=== PATIENT | male | born 1985 | race Caucasian/White ===

== ENCOUNTER 2024-03-31 13:55 | Emergency (ER) | payer OTHER ==
[~2024-03-31] VITALS: Ht 177.8 cm; Wt 65.8 kg
[2024-03-31 14:12] VITALS: BP 123/92; PULSE 91; RESP 18; TEMP 96.9; O2SAT 99
[2024-03-31 14:26] VITALS: O2SAT 99
[2024-03-31] MEDS: KETOROLAC 30 MG/ML VIAL IM ONE (14:46)
[2024-03-31] MEDS ORDERED: IBUP-2213 PO (15:39)
== END 2024-03-31 15:45 | disposition home or self-care (01) ==
LOC: MED 13:55
DX: S62.312A Displaced fracture of base of third metacarpal bone, right hand, initial encounter for closed fracture (principal); S62.314A Displaced fracture of base of fourth metacarpal bone, right hand, initial encounter for closed fracture; S62.316A Displaced fracture of base of fifth metacarpal bone, right hand, initial encounter for closed fracture; Z79.899 Other long term (current) drug therapy; W01.198A Fall on same level from slipping, tripping and stumbling with subsequent striking against other object, initial encounter; Y93.89 Activity, other specified; Y92.89 Other specified places as the place of occurrence of the external cause; Y99.8 Other external cause status
CPT/HCPCS: 29125; 73130; 96372; 99283; J1885

== ENCOUNTER 2024-08-26 04:51 | Emergency (ER) | payer OTHER ==
[~2024-08-26] VITALS: Ht 177.8 cm; Wt 65.8 kg
[~2024-08-26 04:51] MED LIST: IBUP-2213 PO
[2024-08-26 05:28] VITALS: BP 120/79; PULSE 92; RESP 18; TEMP 98.9; O2SAT 98
[2024-08-26] MEDS ORDERED: BACITRACIN OINT 500 UNITS/GM PKT TP ONE (06:25)
[2024-08-26] MEDS ORDERED: BACI-105 TP (06:27)
[2024-08-26] MEDS ORDERED: CEPH-588 PO (06:27)
== END 2024-08-26 07:26 | disposition home or self-care (01) ==
LOC: MED 04:51
DX: S51.012A Laceration without foreign body of left elbow, initial encounter (principal); S50.812A Abrasion of left forearm, initial encounter; S40.212A Abrasion of left shoulder, initial encounter; S30.811A Abrasion of abdominal wall, initial encounter; S70.212A Abrasion, left hip, initial encounter; S80.812A Abrasion, left lower leg, initial encounter; Z79.899 Other long term (current) drug therapy; V29.99XA Rider (driver) (passenger) of other motorcycle injured in unspecified traffic accident, initial encounter; Y93.55 Activity, bike riding; Y92.410 Unspecified street and highway as the place of occurrence of the external cause; Y99.8 Other external cause status
CPT/HCPCS: 99283